=== PATIENT | male | born 1955 | race African-American/Black ===

== ENCOUNTER 2016-12-07 20:10 | Emergency (ER) | payer MEDICARE, MEDICAID ==
[~2016-12-07] VITALS: Ht 175.3 cm; Wt 62.0 kg
[~2016-12-07 20:10] MED LIST: ATOR10TA69 PO; ERGO2000 PO; FINA5TAB11 PO; NEPVIT PO; SULF-165 PO; TAMS0.4C31 PO
[2016-12-07 21:27] VITALS: BP 113/70
[2016-12-07 22:04] LABS: CLARITY URINE CLEAR (CLEAR); COLOR URINE YELLOW (YELLOW); GLUCOSE URINE NEGATIVE (NEGATIVE); KETONES URINE NEGATIVE (NEGATIVE); LEUKOCYTE ESTERASE URINE 3+ (NEGATIVE); NITRITE URINE POSITIVE (NEGATIVE); OCCULT BLOOD URINE TRACE (NEGATIVE); PROTEIN URINE 1+ (NEGATIVE); SPECIFIC GRAVITY URINE 1.014 (1.005-1.030)
[2016-12-07 22:26] LABS: BASOPHILS % 1.2 % (0.0-2.0); EOSINOPHILS % 8.1 % (0.0-5.0); HEMATOCRIT. 36.2 % (42.0-52.0); HEMOGLOBIN. 11.9 g/dL (14.0-18.0); LYMPHOCYTES % 43.3 % (20.0-50.0); MEAN CORPUSCULAR HEMOGLOBIN 27.4 pg (28.0-32.0); MEAN CORPUSCULAR VOLUME 83.2 fL (80.0-94.0); MONOCYTES % 6.4 % (2.0-8.0); PLATELET 165 x1000/uL (130-400); RED BLOOD CELL COUNT 4.35 mill/uL (4.7-6.1); RED CELL DISTRIBUTION WIDTH 15.4 % (11.6-14.6)
[2016-12-07 22:42] LABS: CARBON DIOXIDE 26 mEq/L (21-32); CHLORIDE 107 mEq/L (98-107)
== END 2016-12-07 23:21 | disposition home or self-care (01) ==
LOC: ER 20:10
DX: N39.0 Urinary tract infection, site not specified (principal); N40.1 Benign prostatic hyperplasia with lower urinary tract symptoms; R33.8 Other retention of urine; F03.90 Unspecified dementia, unspecified severity, without behavioral disturbance, psychotic disturbance, mood disturbance, and anxiety
CPT/HCPCS: 36415; 80053; 81001; 85025; 87086; 99284

== ENCOUNTER 2017-02-17 16:26 | Emergency (ER) | payer MEDICARE, MEDICAID ==
[~2017-02-17] VITALS: Ht 175.3 cm; Wt 57.7 kg
[2017-02-17 21:27] LABS: BASOPHILS % 0.8 % (0.0-2.0); EOSINOPHILS % 4.7 % (0.0-5.0); HEMATOCRIT. 37.7 % (42.0-52.0); HEMOGLOBIN. 12.4 g/dL (14.0-18.0); LYMPHOCYTES % 39.6 % (20.0-50.0); MEAN CORPUSCULAR HEMOGLOBIN 27.8 pg (28.0-32.0); MEAN CORPUSCULAR VOLUME 84.9 fL (80.0-94.0); MEAN PLATELET VOLUME 8.2 fl (7.4-10.4); MONOCYTES % 8.2 % (2.0-8.0); NEUTROPHILS % 46.7 % (40.0-76.0); PLATELET 154 x1000/uL (130-400); RED BLOOD CELL COUNT 4.45 mill/uL (4.7-6.1); RED CELL DISTRIBUTION WIDTH 16.1 % (11.6-14.6)
[2017-02-17 21:32] LABS: CHLORIDE 106 mEq/L (98-107)
[2017-02-17 21:37] LABS: CARBON DIOXIDE 25 mEq/L (21-32)
[2017-02-17 21:47] LABS: CLARITY URINE CLOUDY (CLEAR); COLOR URINE YELLOW (YELLOW); GLUCOSE URINE NEGATIVE (NEGATIVE); KETONES URINE NEGATIVE (NEGATIVE); LEUKOCYTE ESTERASE URINE 3+ (NEGATIVE); NITRITE URINE NEGATIVE (NEGATIVE); OCCULT BLOOD URINE 3+ (NEGATIVE); PH URINE >=9.0 (4.5-8.0); PROTEIN URINE 2+ (NEGATIVE); SPECIFIC GRAVITY URINE 1.014 (1.005-1.030)
[2017-02-17 22:00] VITALS: BP 130/89
== END 2017-02-17 22:42 | disposition home or self-care (01) ==
LOC: ER 16:26
DX: N18.6 End stage renal disease (principal); N18.9 Chronic kidney disease, unspecified; F03.90 Unspecified dementia, unspecified severity, without behavioral disturbance, psychotic disturbance, mood disturbance, and anxiety; N39.0 Urinary tract infection, site not specified; R03.0 Elevated blood-pressure reading, without diagnosis of hypertension
CPT/HCPCS: 36415; 80053; 81001; 85025; 87077; 87086; 87186; 99284

== ENCOUNTER 2018-11-17 06:32 | Emergency (ER) | payer MEDICARE, MEDICAID ==
[~2018-11-17] VITALS: Ht 175.3 cm; Wt 76.0 kg
[2018-11-17] MEDS ORDERED: MAGNESIUM CITRATE 300ML SOLUTION PO ONE (07:15)
[2018-11-17] MEDS ORDERED: LACTULOSE 20G/30ML UDC PO ONE (07:15)
[2018-11-17 08:08] LABS: BASOPHILS % 1.6 % (0.0-2.0); EOSINOPHILS % 5.1 % (0.0-5.0); HEMOGLOBIN. 12.9 g/dL (14.0-18.0); LYMPHOCYTES % 45.6 % (20.0-50.0); MEAN CORPUSCULAR HEMOGLOBIN 27.7 pg (28.0-32.0); MEAN CORPUSCULAR VOLUME 85.6 fL (80.0-94.0); MEAN PLATELET VOLUME 7.9 fl (7.4-10.4); MONOCYTES % 8.4 % (2.0-8.0); NEUTROPHILS % 39.3 % (40.0-76.0); PLATELET 169 x1000/uL (130-400); RED BLOOD CELL COUNT 4.67 mill/uL (4.7-6.1); RED CELL DISTRIBUTION WIDTH 14.9 % (11.6-14.6)
[2018-11-17 08:09] LABS: CLARITY URINE CLOUDY (CLEAR); COLOR URINE YELLOW (YELLOW); KETONES URINE NEGATIVE (NEGATIVE); LEUKOCYTE ESTERASE URINE 3+ (NEGATIVE); NITRITE URINE POSITIVE (NEGATIVE); OCCULT BLOOD URINE TRACE (NEGATIVE); PH URINE 8.5 (4.5-8.0); PROTEIN URINE 1+ (NEGATIVE); SPECIFIC GRAVITY URINE 1.014 (1.005-1.030)
[2018-11-17 08:12] LABS: CHLORIDE 113 mEq/L (98-107)
[2018-11-17 08:14] LABS: PROTHROMBIN TIME 10.2 sec (9.6-11.0)
[2018-11-17 10:00] VITALS: BP 131/72
== END 2018-11-17 10:32 | disposition home or self-care (01) ==
LOC: ER 06:32
DX: N39.0 Urinary tract infection, site not specified (principal); K59.00 Constipation, unspecified; N28.9 Disorder of kidney and ureter, unspecified; N40.0 Benign prostatic hyperplasia without lower urinary tract symptoms; F03.90 Unspecified dementia, unspecified severity, without behavioral disturbance, psychotic disturbance, mood disturbance, and anxiety
CPT/HCPCS: 36415; 87077; 87186; 99283

== ENCOUNTER 2019-01-28 12:05 | Inpatient (IN) | payer MEDICARE, MEDICAID ==
[~2019-01-28] VITALS: Ht 152.4 cm; Wt 59.9 kg
[2019-01-28 14:41] LABS: HEMATOCRIT 39.6 % (42.0-52.0); HEMOGLOBIN 12.9 g/dL (14.0-18.0); MEAN CORPUSCULAR HEMOGLOBIN 27.7 pg (28.0-32.0); MEAN CORPUSCULAR VOLUME 85.4 fL (80.0-94.0); PLATELET 163 x1000/uL (130-400); RED BLOOD CELL COUNT 4.64 mill/uL (4.7-6.1)
[2019-01-28 14:44] LABS: CHLORIDE 112 mEq/L (98-107)
[2019-01-28 14:47] LABS: CLARITY URINE CLOUDY (CLEAR); COLOR URINE YELLOW (YELLOW); KETONES URINE NEGATIVE (NEGATIVE); LEUKOCYTE ESTERASE URINE 3+ (NEGATIVE); NITRITE URINE POSITIVE (NEGATIVE); OCCULT BLOOD URINE TRACE (NEGATIVE); PH URINE 8.5 (4.5-8.0); PROTEIN URINE TRACE (NEGATIVE); SPECIFIC GRAVITY URINE 1.014 (1.005-1.030); UROBILINOGEN URINE 0.2 E.U./dL (0.2-1.0)
[2019-01-28] MEDS ORDERED: LEVOFLOXACIN 500MG PREMIX 100 ML IV NR (15:00)
[2019-01-28 15:46] LABS: CARCINO EMBRYONIC ANTIGEN 2.9 ng/ml; PROSTRATE SPECIFIC AG TOTAL 3.31 ng/mL (0.0-4.0)
[2019-01-28] MEDS ORDERED: ACETAMINOPHEN 325MG TABLET PO PRN (17:30)
[2019-01-28] MEDS ORDERED: LORAZEPAM 2MG/ML CPJ IV PRN (17:30)
[2019-01-28] MEDS ORDERED: IPRATROPIUM/ALBUTEROL 0.5-3(2.5)MG/3ML NEB NEB PRN (17:30)
[2019-01-28] MEDS ORDERED: DOCUSATE SODIUM 100MG CAPSULE PO PRN (17:30)
[2019-01-28] MEDS ORDERED: DIPHENHYDRAMINE 50MG/ML VIAL IV PRN (17:30)
[2019-01-28] MEDS ORDERED: MAGNESIUM/ALUMINUM HYDROXIDE/SIMETHICONE 30ML UDC PO PRN (17:30)
[2019-01-28] MEDS ORDERED: GUAIFENESIN 200MG/10ML SUGAR FREE UDC PO PRN (17:30)
[2019-01-28] MEDS ORDERED: NA PHOS,M-B/NA PHOS,DI-BA ENEMA 118ML PR PRN (17:30)
[2019-01-28] MEDS ORDERED: ONDANSETRON HCL 4MG/2ML INJ IV PRN (17:30)
[2019-01-28] MEDS ORDERED: HYDROCODONE/ACETAMINOPHEN 5/325MG TABLET PO PRN (17:30)
[2019-01-28] MEDS ORDERED: MORPHINE SULFATE 2 MG/ML CPJ (NOT FOR IM USE) IV PRN (17:30)
[2019-01-28] MEDS ORDERED: CLONIDINE 0.1MG TABLET PO PRN (17:30)
[2019-01-28 18:20] VITALS: BP 144/82
[2019-01-28] MEDS: DEXT 5%/0.45% NACL 1000ML 1,000 ML IV SCH (18:44)
[2019-01-28] MEDS: ENOXAPARIN 30MG/0.3ML SYR SUBCUT SCH (18:44)
[2019-01-28 20:00] VITALS: BP 114/76
[2019-01-28] MEDS: PIPERACILLIN/TAZOBACTAM 2.25 G in DEXTROSE 5% WATER 50 ML IV SCH (20:00)
[2019-01-28 21:20] VITALS: BP 117/74
[2019-01-29] VITALS: BP 99/74
[2019-01-29] MEDS: PIPERACILLIN/TAZOBACTAM 2.25 G in DEXTROSE 5% WATER 50 ML IV SCH ×3 (03:24→23:16)
[2019-01-29 04:00] VITALS: BP 121/79
[2019-01-29] MEDS ORDERED: DEXTROSE 50% WATER 50ML SYRINGE IV PRN (06:30)
[2019-01-29] MEDS: BLOOD SUGAR DIAGNOSTIC STRIP TEST SCH ×4 (06:36→21:00)
[2019-01-29] MEDS ORDERED: INSULIN LISPRO 100 UNITS/ML SUBCUT SCH (07:40)
[2019-01-29 08:41] VITALS: BP 99/56
[2019-01-29] MEDS: ASPIRIN 81MG EC TABLET PO SCH (08:50)
[2019-01-29 09:25] LABS: BASOPHILS % 1.5 % (0.0-2.0); HEMATOCRIT. 39.9 % (42.0-52.0); HEMOGLOBIN. 13.2 g/dL (14.0-18.0); LYMPHOCYTES % 39.1 % (20.0-50.0); MEAN CORPUSCULAR HEMOGLOBIN 28.2 pg (28.0-32.0); MEAN PLATELET VOLUME 7.9 fl (7.4-10.4); MONOCYTES % 8.9 % (2.0-8.0); NEUTROPHILS % 45.5 % (40.0-76.0); PLATELET 164 x1000/uL (130-400); RED BLOOD CELL COUNT 4.67 mill/uL (4.7-6.1); RED CELL DISTRIBUTION WIDTH 15.6 % (11.6-14.6)
[2019-01-29 09:31] LABS: MEAN CORPUSCULAR VOLUME 85.5 fL (80.0-94.0)
[2019-01-29] MEDS: DEXT 5%/0.45% NACL 1000ML 1,000 ML IV SCH (10:56)
[2019-01-29 12:00] VITALS: BP 98/70
[2019-01-29 12:57] LABS: CHLORIDE 109 mEq/L (98-107)
[2019-01-29 13:04] LABS: LDL CHOLESTEROL 79 mg/dL (5-100)
[2019-01-29 13:05] LABS: T4 FREE 1.26 ng/dL (0.76-1.46)
[2019-01-29 13:06] LABS: HDL CHOLESTEROL 75 mg/dL (40-59)
[2019-01-29 16:08] VITALS: BP 136/84
[2019-01-29] MEDS: ENOXAPARIN 30MG/0.3ML SYR SUBCUT SCH (18:42)
[2019-01-29 20:00] VITALS: BP 107/72
[2019-01-29] MEDS ORDERED: INSULIN GLARGINE UD 100 UNITS/ML SYR SUBCUT SCH (22:00)
[2019-01-30] VITALS: BP 107/64
[2019-01-30] MEDS: DEXT 5%/0.45% NACL 1000ML 1,000 ML IV SCH ×2 (02:47→18:19)
[2019-01-30 04:00] VITALS: BP 104/73
[2019-01-30] MEDS: PIPERACILLIN/TAZOBACTAM 2.25 G in DEXTROSE 5% WATER 50 ML IV SCH ×3 (05:08→22:00)
[2019-01-30] MEDS: BLOOD SUGAR DIAGNOSTIC STRIP TEST SCH ×4 (06:17→19:50)
[2019-01-30 08:00] VITALS: BP 106/72
[2019-01-30] MEDS: ASPIRIN 81MG EC TABLET PO SCH (08:19)
[2019-01-30 12:00] VITALS: BP_SYST 107; BP_SYST 151; BP_DIAS 60; BP_DIAS 62
[2019-01-30 16:00] VITALS: BP 98/60
[2019-01-30] MEDS: ENOXAPARIN 30MG/0.3ML SYR SUBCUT SCH (18:18)
[2019-01-30 20:06] VITALS: BP 118/60
[2019-01-31 00:23] VITALS: BP 109/64
[2019-01-31 04:00] VITALS: BP 112/70
[2019-01-31] MEDS: PIPERACILLIN/TAZOBACTAM 2.25 G in DEXTROSE 5% WATER 50 ML IV SCH ×2 (05:00→15:21)
[2019-01-31] MEDS: DEXT 5%/0.45% NACL 1000ML 1,000 ML IV SCH (05:14)
[2019-01-31] MEDS: BLOOD SUGAR DIAGNOSTIC STRIP TEST SCH ×2 (06:05→11:45)
[2019-01-31 08:00] VITALS: BP 124/71
[2019-01-31] MEDS: ASPIRIN 81MG EC TABLET PO SCH (09:28)
[2019-01-31 11:18] VITALS: BP 139/85
[2019-01-31 12:00] VITALS: BP 126/80
[2019-01-31 16:00] VITALS: BP 139/85
== END 2019-01-31 18:55 | DRG 640 ==
LOC: ER 12:05 → ENRESERV 15:12 → CANRESERV 15:12 → 6EST 16:40 → EDBEDREQ 16:44 → EDBEDREQTM 16:44 → ENRESERV 17:03 → 8WST 21:20 → 5WST 01-31 07:12
PROVIDERS: ADMIT Internal Medicine; ATTEND Internal Medicine
DX: E86.0 Dehydration (principal); G93.41 Metabolic encephalopathy; N39.0 Urinary tract infection, site not specified; E46 Unspecified protein-calorie malnutrition; R65.10 Systemic inflammatory response syndrome (SIRS) of non-infectious origin without acute organ dysfunction; I10 Essential (primary) hypertension; N40.0 Benign prostatic hyperplasia without lower urinary tract symptoms; F03.90 Unspecified dementia, unspecified severity, without behavioral disturbance, psychotic disturbance, mood disturbance, and anxiety; D64.9 Anemia, unspecified; Z68.25 Body mass index [BMI] 25.0-25.9, adult; Z79.899 Other long term (current) drug therapy
CPT/HCPCS: 36415; 71045; 80048; 80061; 81003; 82378; 82962; 84153; 84439; 84443; 85027; 96365; 96366; 97162; 97530; 99285; J1650; J1956; J2543; J7060; G0103

== ENCOUNTER 2019-02-28 16:36 | Emergency (ER) | payer MEDICARE, MEDICAID ==
[~2019-02-28] VITALS: Ht 170.2 cm; Wt 69.0 kg
[2019-02-28 18:53] VITALS: BP 120/72
== END 2019-02-28 19:01 | disposition home or self-care (01) ==
LOC: ER 17:23
DX: Z46.6 Encounter for fitting and adjustment of urinary device (principal); R33.9 Retention of urine, unspecified; N40.0 Benign prostatic hyperplasia without lower urinary tract symptoms
CPT/HCPCS: 51702; 99284; A4315

== ENCOUNTER 2021-02-27 22:19 | Inpatient (IN) | payer MEDICARE, MEDICAID ==
[~2021-02-27] VITALS: Ht 193 cm; Wt 64.4 kg
[~2021-02-27 22:19] MED LIST changes: -SULF-165 PO
[2021-02-27] MEDS ORDERED: MORPHINE SULFATE 4 MG/ML CPJ (NOT FOR IM USE) IV STA (22:42)
[2021-02-27] MEDS ORDERED: SODIUM CHLORIDE 0.9% 1,000 ML IV ONE (22:45)
[2021-02-28 01:00] LABS: HEMATOCRIT. 34.4 % (42.0-52.0); HEMOGLOBIN. 11.1 g/dL (14.0-18.0); MEAN CORPUSCULAR HEMOGLOBIN 27.7 pg (28.0-32.0); MEAN CORPUSCULAR VOLUME 85.5 fL (80.0-94.0); MEAN PLATELET VOLUME 9.2 fl (7.4-10.4); PLATELET 218 x1000/uL (130-400); RED BLOOD CELL COUNT 4.02 mill/uL (4.7-6.1); RED CELL DISTRIBUTION WIDTH 15.5 % (11.6-14.6)
[2021-02-28 01:08] LABS: CHLORIDE 109 mEq/L (98-107)
[2021-02-28 01:23] LABS: INR 1.1; PROTHROMBIN TIME 11.5 sec (9.6-11.0)
[2021-02-28] MEDS ORDERED: SODIUM CHLORIDE 0.9% 1,000 ML IV ONE (01:45)
[2021-02-28 07:30] LABS: PLATELET ESTIMATE NORMAL
[2021-02-28] MEDS ORDERED: CLONIDINE 0.1MG TABLET PO PRN (12:15)
[2021-02-28] MEDS ORDERED: MORPHINE SULFATE 2 MG/ML CPJ (NOT FOR IM USE) IV PRN (12:15)
[2021-02-28] MEDS ORDERED: DIPHENHYDRAMINE 50MG/ML VIAL IV PRN (12:15)
[2021-02-28] MEDS ORDERED: HYDROCODONE/ACETAMINOPHEN 5/325MG TABLET PO PRN (12:15)
[2021-02-28] MEDS ORDERED: HYDRALAZINE 20MG/ML VIAL IV PRN (12:15)
[2021-02-28] MEDS ORDERED: MAGNESIUM/ALUMINUM HYDROXIDE/SIMETHICONE 30ML UDC PO PRN (12:15)
[2021-02-28] MEDS ORDERED: ONDANSETRON HCL 4MG/2ML INJ IV PRN (12:15)
[2021-02-28] MEDS ORDERED: ENOXAPARIN 40MG/0.4ML SYR SUBCUT SCH (12:15)
[2021-02-28] MEDS ORDERED: ACETAMINOPHEN 325MG TABLET PO PRN (12:15)
[2021-02-28] MEDS ORDERED: LORAZEPAM 2MG/ML CPJ IV PRN (12:15)
[2021-02-28] MEDS ORDERED: IPRATROPIUM/ALBUTEROL 0.5-3(2.5)MG/3ML NEB HHN PRN (12:15)
[2021-02-28] MEDS ORDERED: GUAIFENESIN 200MG/10ML SUGAR FREE UDC PO PRN (12:15)
[2021-02-28] MEDS ORDERED: DOCUSATE SODIUM 100MG CAPSULE PO PRN (12:15)
[2021-02-28] MEDS ORDERED: NALOXONE HCL 0.4MG/ML VIAL IV PRN (12:30)
[2021-02-28] MEDS: ENOXAPARIN 30MG/0.3ML SYR SUBCUT SCH (12:54)
[2021-02-28] MEDS: SODIUM CHLORIDE 0.9% INJ 3ML FLUSH IVF SCH (14:00)
[2021-02-28 16:09] VITALS: BP 102/72
[2021-02-28 17:03] VITALS: BP 102/72
[2021-02-28] MEDS: SODIUM CHLORIDE 0.45% 1,000 ML IV SCH (17:11)
[2021-02-28 20:00] VITALS: BP 98/69
[2021-03-01] VITALS: BP 94/58
[2021-03-01] MEDS: SODIUM CHLORIDE 0.45% 1,000 ML IV SCH (00:20)
[2021-03-01] MEDS: SODIUM CHLORIDE 0.9% INJ 3ML FLUSH IVF SCH ×2 (00:20→21:29)
[2021-03-01 04:00] VITALS: BP 114/72
[2021-03-01] MEDS ORDERED: DOCU240C26 PO (07:17)
[2021-03-01] MEDS ORDERED: ATOR40TA70 PO (07:17)
[2021-03-01] MEDS ORDERED: TAMS-11 PO (07:17)
[2021-03-01] MEDS ORDERED: CHOL400D7 PO (07:17)
[2021-03-01 08:00] VITALS: BP 109/57
[2021-03-01 08:52] LABS: HEMOGLOBIN. 9.9 g/dL (14.0-18.0); MEAN CORPUSCULAR HEMOGLOBIN 28.2 pg (28.0-32.0); MEAN CORPUSCULAR VOLUME 85.3 fL (80.0-94.0); MEAN PLATELET VOLUME 8.9 fl (7.4-10.4); PLATELET 190 x1000/uL (130-400); RED BLOOD CELL COUNT 3.52 mill/uL (4.7-6.1); RED CELL DISTRIBUTION WIDTH 15.7 % (11.6-14.6)
[2021-03-01 08:58] LABS: CHLORIDE 106 mEq/L (98-107)
[2021-03-01 09:33] LABS: T4 FREE 1.39 ng/dL (0.76-1.46)
[2021-03-01 10:12] LABS: CLARITY URINE TURBID (CLEAR); COLOR URINE DK YELLOW (YELLOW); KETONES URINE NEGATIVE (NEGATIVE); LEUKOCYTE ESTERASE URINE 3+ (NEGATIVE); NITRITE URINE NEGATIVE (NEGATIVE); OCCULT BLOOD URINE 3+ (NEGATIVE); PH URINE 7.5 (4.5-8.0); PROTEIN URINE 2+ (NEGATIVE); SPECIFIC GRAVITY URINE 1.011 (1.005-1.030); UROBILINOGEN URINE 0.2 E.U./dL (0.2-1.0)
[2021-03-01] MEDS ORDERED: CEFTRIAXONE 1 G PREMIX 50 ML IV SCH (10:45)
[2021-03-01 12:00] VITALS: BP 108/60
[2021-03-01] MEDS: DEXT 5%/0.45% NACL 1000ML 1,000 ML IV SCH (12:23)
[2021-03-01] MEDS: CEFTRIAXONE 1,000 MG in DEXTROSE 5% WATER 50 ML IV SCH (13:31)
[2021-03-01] MEDS: ENOXAPARIN 30MG/0.3ML SYR SUBCUT SCH (13:35)
[2021-03-01 16:00] VITALS: BP 101/61
[2021-03-01 17:20] LABS: CREATINE KINASE MB FRACTION 12.8 ng/mL (0.5-3.6)
[2021-03-01 17:32] LABS: CREATINE KINASE 1082 IU/L (39-308)
[2021-03-01 18:24] LABS: NUCLEATED RED BLOOD CELLS 3 /100 WBC; PLATELET ESTIMATE NORMAL
[2021-03-01 20:14] VITALS: BP 103/64
[2021-03-01] MEDS: TAMSULOSIN HCL 0.4MG SR CAPSULE PO SCH ×2 (20:28→20:31)
[2021-03-02] VITALS: BP 112/66
[2021-03-02] MEDS: DEXT 5%/0.45% NACL 1000ML 1,000 ML IV SCH (00:46)
[2021-03-02 02:51] LABS: CREATINE KINASE MB FRACTION 10.7 ng/mL (0.5-3.6)
[2021-03-02 04:00] VITALS: BP 111/70
[2021-03-02] MEDS: SODIUM CHLORIDE 0.9% INJ 3ML FLUSH IVF SCH ×3 (05:07→20:51)
[2021-03-02 07:46] VITALS: BP 112/71
[2021-03-02 08:11] LABS: ANTI-NUCLEAR ANTIBODIES DIRECT Negative (Negative)
[2021-03-02 08:23] LABS: CHLORIDE 108 mEq/L (98-107); HEMATOCRIT. 24.9 % (42.0-52.0); HEMOGLOBIN. 8.4 g/dL (14.0-18.0); MEAN CORPUSCULAR HEMOGLOBIN 28.2 pg (28.0-32.0); MEAN PLATELET VOLUME 8.5 fl (7.4-10.4); PLATELET 165 x1000/uL (130-400); RED BLOOD CELL COUNT 2.96 mill/uL (4.7-6.1); RED CELL DISTRIBUTION WIDTH 15.4 % (11.6-14.6)
[2021-03-02 08:34] LABS: CREATINE KINASE 722 IU/L (39-308)
[2021-03-02 08:36] LABS: CREATINE KINASE MB FRACTION 6.6 ng/mL (0.5-3.6)
[2021-03-02 11:17] VITALS: BP 116/66
[2021-03-02 12:48] LABS: BG BASE EXCESS -9.6 mmol/L (-2.0-2.0); BG CARBOXYHEMOGLOBIN 0.2 % (0.5-1.5); BG DEOXYHEMOGLOBIN 2.5 % (0.0-5.0); BG FRACTION INSPIRED OXYGEN 21; BG HCO3 ACT 14.3 mmol/L (22.0-26.0); BG METHEMOGLOBIN 0.5 % (0.0-1.5); BG OXYGEN SATURATION 97.5 % (92.0-98.5); BG OXYHEMOGLOBIN 96.8 % (94.0-97.0); BG PCO2 25.1 mmHg (35.0-45.0); BG PH 7.375 (7.350-7.450); BG PO2 110.4 mmHg (75.0-100.0); BG SAMPLE SITE RIGHT BRACHIAL; BG TOTAL HEMOGLOBIN 9.2 g/dL (12.0-18.0); BG VENT MODE ROOM AIR
[2021-03-02] MEDS: CEFTRIAXONE 1,000 MG in DEXTROSE 5% WATER 50 ML IV SCH (12:54)
[2021-03-02] MEDS: ENOXAPARIN 30MG/0.3ML SYR SUBCUT SCH (12:54)
[2021-03-02] MEDS: SODIUM BICARBONATE 100 MEQ in SODIUM CHLORIDE 0.45% 1,000 ML IV SCH ×2 (15:02→20:50)
[2021-03-02 15:15] VITALS: BP 114/73
[2021-03-02 17:46] LABS: PLATELET ESTIMATE NORMAL
[2021-03-02 20:00] VITALS: BP 123/74
[2021-03-02] MEDS: LACTULOSE 20G/30ML UDC PO SCH (20:39)
[2021-03-02] MEDS: TAMSULOSIN HCL 0.4MG SR CAPSULE PO SCH (20:49)
[2021-03-03 00:16] VITALS: BP 114/71
[2021-03-03 04:00] VITALS: BP 122/80
[2021-03-03] MEDS: SODIUM CHLORIDE 0.9% INJ 3ML FLUSH IVF SCH ×3 (05:12→21:05)
[2021-03-03] MEDS: SODIUM BICARBONATE 100 MEQ in SODIUM CHLORIDE 0.45% 1,000 ML IV SCH ×2 (06:36→12:21)
[2021-03-03 07:36] LABS: HEMOGLOBIN. 9.5 g/dL (14.0-18.0); MEAN CORPUSCULAR HEMOGLOBIN 28.2 pg (28.0-32.0); MEAN CORPUSCULAR VOLUME 88.7 fL (80.0-94.0); PLATELET 177 x1000/uL (130-400); RED BLOOD CELL COUNT 3.38 mill/uL (4.7-6.1); RED CELL DISTRIBUTION WIDTH 16.1 % (11.6-14.6)
[2021-03-03 08:00] VITALS: BP 119/81
[2021-03-03] MEDS: LACTULOSE 20G/30ML UDC PO SCH ×2 (09:20→21:05)
[2021-03-03] MEDS ORDERED: SODIUM POLYSTYRENE SULFONATE 15 G/60 ML BOT PO NR (11:00)
[2021-03-03 12:00] VITALS: BP 110/79
[2021-03-03 14:14] LABS: PLATELET ESTIMATE NORMAL
[2021-03-03] MEDS: CEFTRIAXONE 1,000 MG in DEXTROSE 5% WATER 50 ML IV SCH (14:24)
[2021-03-03] MEDS: ENOXAPARIN 30MG/0.3ML SYR SUBCUT SCH (14:46)
[2021-03-03 16:00] VITALS: BP 116/79
[2021-03-03 20:00] VITALS: BP 111/64
[2021-03-03] MEDS: TAMSULOSIN HCL 0.4MG SR CAPSULE PO SCH (21:05)
[2021-03-04] VITALS: BP 114/72
[2021-03-04] MEDS: SODIUM BICARBONATE 100 MEQ in SODIUM CHLORIDE 0.45% 1,000 ML IV SCH ×2 (01:25→10:35)
[2021-03-04 04:00] VITALS: BP 95/66
[2021-03-04] MEDS: SODIUM CHLORIDE 0.9% INJ 3ML FLUSH IVF SCH ×3 (06:00→21:26)
[2021-03-04 08:17] VITALS: BP 102/68
[2021-03-04 08:29] LABS: HEMATOCRIT. 26.7 % (42.0-52.0); HEMOGLOBIN. 8.8 g/dL (14.0-18.0); MEAN CORPUSCULAR HEMOGLOBIN 27.8 pg (28.0-32.0); MEAN CORPUSCULAR VOLUME 84.1 fL (80.0-94.0); MEAN PLATELET VOLUME 8.7 fl (7.4-10.4); PLATELET 205 x1000/uL (130-400); RED BLOOD CELL COUNT 3.18 mill/uL (4.7-6.1); RED CELL DISTRIBUTION WIDTH 15.2 % (11.6-14.6)
[2021-03-04] MEDS: LACTULOSE 20G/30ML UDC PO SCH ×2 (08:35→20:52)
[2021-03-04 09:12] LABS: PHOSPHORUS 4.7 mg/dL (2.5-4.9)
[2021-03-04 12:07] VITALS: BP 103/62
[2021-03-04] MEDS: DEXTROSE 5% WATER 1,000 ML IV SCH ×2 (13:09→20:53)
[2021-03-04] MEDS: CEFTRIAXONE 1,000 MG in DEXTROSE 5% WATER 50 ML IV SCH (13:20)
[2021-03-04] MEDS: ENOXAPARIN 30MG/0.3ML SYR SUBCUT SCH (13:24)
[2021-03-04 16:40] VITALS: BP 106/60
[2021-03-04 16:55] LABS: PLATELET ESTIMATE NORMAL
[2021-03-04 20:27] VITALS: BP 98/60
[2021-03-04] MEDS: TAMSULOSIN HCL 0.4MG SR CAPSULE PO SCH (20:53)
[2021-03-05 00:14] VITALS: BP 95/62
[2021-03-05] MEDS: DEXTROSE 5% WATER 1,000 ML IV SCH ×4 (03:02→22:20)
[2021-03-05 04:00] VITALS: BP 100/63
[2021-03-05] MEDS: SODIUM CHLORIDE 0.9% INJ 3ML FLUSH IVF SCH ×3 (05:02→21:05)
[2021-03-05 07:10] LABS: HEMATOCRIT. 28.3 % (42.0-52.0); HEMOGLOBIN. 9.2 g/dL (14.0-18.0); MEAN CORPUSCULAR HEMOGLOBIN 27.7 pg (28.0-32.0); MEAN CORPUSCULAR VOLUME 84.7 fL (80.0-94.0); MEAN PLATELET VOLUME 8.8 fl (7.4-10.4); PLATELET 209 x1000/uL (130-400); RED BLOOD CELL COUNT 3.34 mill/uL (4.7-6.1); RED CELL DISTRIBUTION WIDTH 14.8 % (11.6-14.6)
[2021-03-05 08:43] VITALS: BP 105/62
[2021-03-05] MEDS: LACTULOSE 20G/30ML UDC PO SCH ×2 (08:55→21:05)
[2021-03-05] MEDS: ENOXAPARIN 30MG/0.3ML SYR SUBCUT SCH (12:14)
[2021-03-05] MEDS: CEFTRIAXONE 1,000 MG in DEXTROSE 5% WATER 50 ML IV SCH (12:14)
[2021-03-05 12:18] VITALS: BP 95/60
[2021-03-05 14:56] LABS: PLATELET ESTIMATE NORMAL
[2021-03-05 16:30] LABS: HEMATOCRIT. 24.1 % (42.0-52.0); HEMOGLOBIN. 7.9 g/dL (14.0-18.0); MEAN CORPUSCULAR HEMOGLOBIN 27.4 pg (28.0-32.0); MEAN CORPUSCULAR VOLUME 83.3 fL (80.0-94.0); MEAN PLATELET VOLUME 8.5 fl (7.4-10.4); PLATELET 205 x1000/uL (130-400); RED BLOOD CELL COUNT 2.89 mill/uL (4.7-6.1)
[2021-03-05 16:46] VITALS: BP 104/60
[2021-03-05 19:13] LABS: PLATELET ESTIMATE NORMAL
[2021-03-05 20:00] VITALS: BP 101/64
[2021-03-05] MEDS: TAMSULOSIN HCL 0.4MG SR CAPSULE PO SCH (21:05)
[2021-03-05] MEDS ORDERED: POTASSIUM CHLORIDE INJ 40 MEQ in DEXT 5% WATER 250 ML IV NR (21:30)
[2021-03-06 00:34] VITALS: BP 98/64
[2021-03-06 04:00] VITALS: BP 97/63
[2021-03-06] MEDS: DEXTROSE 5% WATER 1,000 ML IV SCH ×2 (05:33→11:59)
[2021-03-06] MEDS: SODIUM CHLORIDE 0.9% INJ 3ML FLUSH IVF SCH ×3 (05:33→21:42)
[2021-03-06] MEDS: LACTULOSE 20G/30ML UDC PO SCH ×2 (08:22→21:24)
[2021-03-06 08:23] VITALS: BP 114/68
[2021-03-06 09:28] LABS: MEAN CORPUSCULAR HEMOGLOBIN 27.7 pg (28.0-32.0); MEAN CORPUSCULAR VOLUME 82.8 fL (80.0-94.0); PLATELET 217 x1000/uL (130-400); RED BLOOD CELL COUNT 2.89 mill/uL (4.7-6.1); RED CELL DISTRIBUTION WIDTH 14.6 % (11.6-14.6)
[2021-03-06 12:00] VITALS: BP 95/65
[2021-03-06 12:35] LABS: PHOSPHORUS 3.3 mg/dL (2.5-4.9)
[2021-03-06] MEDS: ENOXAPARIN 30MG/0.3ML SYR SUBCUT SCH (13:28)
[2021-03-06] MEDS ORDERED: DIATR MEGLU/DIATRIZOATE SOLN 120ML ONE (13:49)
[2021-03-06 16:00] VITALS: BP 90/60
[2021-03-06 20:00] VITALS: BP 105/72
[2021-03-06] MEDS: TAMSULOSIN HCL 0.4MG SR CAPSULE PO SCH (21:24)
[2021-03-06] MEDS: DEXT 5%/0.45% NACL 1000ML 1,000 ML IV SCH (23:00)
[2021-03-06] MEDS ORDERED: POTASSIUM CHLORIDE INJ 40 MEQ in DEXT 5% WATER 250 ML IV NR (23:59)
[2021-03-07] VITALS: BP 96/61
[2021-03-07 04:00] VITALS: BP 99/68
[2021-03-07] MEDS: SODIUM CHLORIDE 0.9% INJ 3ML FLUSH IVF SCH ×3 (06:56→22:00)
[2021-03-07 07:17] LABS: HEMATOCRIT. 26.7 % (42.0-52.0); HEMOGLOBIN. 8.8 g/dL (14.0-18.0); MEAN CORPUSCULAR HEMOGLOBIN 27.6 pg (28.0-32.0); MEAN CORPUSCULAR VOLUME 83.3 fL (80.0-94.0); MEAN PLATELET VOLUME 8.6 fl (7.4-10.4); PLATELET 271 x1000/uL (130-400); RED CELL DISTRIBUTION WIDTH 14.7 % (11.6-14.6)
[2021-03-07 08:00] VITALS: BP 101/72
[2021-03-07] MEDS: LACTULOSE 20G/30ML UDC PO SCH ×2 (08:06→21:50)
[2021-03-07 12:00] VITALS: BP 110/71
[2021-03-07] MEDS: DEXT 5%/0.45% NACL 1000ML 1,000 ML IV SCH (13:12)
[2021-03-07] MEDS: ENOXAPARIN 30MG/0.3ML SYR SUBCUT SCH (13:14)
[2021-03-07] MEDS ORDERED: LIDOCAINE HCL 1% 20ML VIAL (Pyxis) INJ ONE (13:48)
[2021-03-07 16:00] VITALS: BP 106/72
[2021-03-07 18:42] LABS: PLATELET ESTIMATE NORMAL
[2021-03-07 20:00] VITALS: BP 103/74
[2021-03-07] MEDS: TAMSULOSIN HCL 0.4MG SR CAPSULE PO SCH (21:50)
[2021-03-08] VITALS: BP 93/65
[2021-03-08] MEDS: DEXT 5%/0.45% NACL 1000ML 1,000 ML IV SCH ×2 (01:40→14:04)
[2021-03-08 04:00] VITALS: BP 93/60
[2021-03-08] MEDS: SODIUM CHLORIDE 0.9% INJ 3ML FLUSH IVF SCH ×3 (06:00→22:00)
[2021-03-08 06:39] LABS: HEMATOCRIT. 25.4 % (42.0-52.0); HEMOGLOBIN. 8.4 g/dL (14.0-18.0); MEAN CORPUSCULAR HEMOGLOBIN 27.9 pg (28.0-32.0); MEAN CORPUSCULAR VOLUME 84.5 fL (80.0-94.0); MEAN PLATELET VOLUME 8.4 fl (7.4-10.4); PLATELET 254 x1000/uL (130-400); RED CELL DISTRIBUTION WIDTH 14.8 % (11.6-14.6)
[2021-03-08 08:21] VITALS: BP 94/61
[2021-03-08] MEDS: LACTULOSE 20G/30ML UDC PO SCH ×2 (08:51→21:00)
[2021-03-08 12:00] VITALS: BP 90/59
[2021-03-08] MEDS: ENOXAPARIN 30MG/0.3ML SYR SUBCUT SCH (14:04)
[2021-03-08 14:59] LABS: PLATELET ESTIMATE NORMAL
[2021-03-08 16:06] VITALS: BP 102/73
[2021-03-08 20:00] VITALS: BP 103/73
[2021-03-08] MEDS: TAMSULOSIN HCL 0.4MG SR CAPSULE PO SCH (21:00)
[2021-03-09] VITALS: BP 95/69
[2021-03-09 04:00] VITALS: BP 103/73
[2021-03-09] MEDS: DEXT 5%/0.45% NACL 1000ML 1,000 ML IV SCH (04:02)
[2021-03-09] MEDS: SODIUM CHLORIDE 0.9% INJ 3ML FLUSH IVF SCH ×3 (05:56→23:12)
[2021-03-09 06:54] LABS: BASOPHILS % 0.1 % (0.0-2.0); EOSINOPHILS % 0.6 % (0.0-5.0); HEMATOCRIT. 26.3 % (42.0-52.0); LYMPHOCYTES % 14.9 % (20.0-50.0); MEAN CORPUSCULAR HEMOGLOBIN 28.1 pg (28.0-32.0); MEAN CORPUSCULAR VOLUME 92.8 fL (80.0-94.0); MEAN PLATELET VOLUME 8.3 fl (7.4-10.4); MONOCYTES % 3.6 % (2.0-8.0); NEUTROPHILS % 80.8 % (40.0-76.0); PLATELET 244 x1000/uL (130-400); RED BLOOD CELL COUNT 2.84 mill/uL (4.7-6.1); RED CELL DISTRIBUTION WIDTH 15.9 % (11.6-14.6)
[2021-03-09 07:02] LABS: CHLORIDE 111 mEq/L (98-107)
[2021-03-09 07:14] LABS: PHOSPHORUS 3.4 mg/dL (2.5-4.9)
[2021-03-09 08:07] VITALS: BP 111/65
[2021-03-09] MEDS ORDERED: SODIUM CHLORIDE 0.9% 1,000 ML IV SCH (09:00)
[2021-03-09] MEDS: LACTULOSE 20G/30ML UDC PO SCH ×2 (09:00→23:10)
[2021-03-09 12:12] VITALS: BP 103/64
[2021-03-09] MEDS ORDERED: CEFTRIAXONE 1 G PREMIX 50 ML IV SCH (12:15)
[2021-03-09] MEDS ORDERED: VANCOMYCIN HCL 1 GM/VIAL ONE (13:55)
[2021-03-09] MEDS ORDERED: LIDOCAINE HCL/EPINEPHRINE 1%-EPI 1:100,000 20 ML VIAL ONE (13:55)
[2021-03-09] MEDS ORDERED: POLYMYXIN B SULFATE 500000 UNITS/VIAL ONE (13:56)
[2021-03-09] MEDS ORDERED: MAGNESIUM 2 G PREMIX 50 ML IV SCH (14:00)
[2021-03-09] MEDS: CEFTRIAXONE 1,000 MG in DEXTROSE 5% WATER 50 ML IV SCH (14:20)
[2021-03-09] MEDS ORDERED: NEOSTIGMINE METHYLSULFATE 1MG/ML 10 ML VIAL ONE (15:14)
[2021-03-09] MEDS ORDERED: PROPOFOL 200MG/20ML VIAL IV ONE (15:14)
[2021-03-09] MEDS ORDERED: ROCURONIUM BROMIDE 10MG/ML VIAL 5ML IV ONE (15:14)
[2021-03-09] MEDS ORDERED: FENTANYL CITRATE/PF 50MCG/ML 2ML VIAL ONE ×2 (15:14→16:01)
[2021-03-09] MEDS ORDERED: MIDAZOLAM HCL 2 MG/2 ML VIAL ONE (15:14)
[2021-03-09] MEDS ORDERED: PHENYLEPHRINE HCL 10 MG/ML 1ML (IV VIAL) IV ONE (15:15)
[2021-03-09] MEDS ORDERED: GLYCOPYRROLATE 0.2 MG/ML 2ML VIAL ONE (15:15)
[2021-03-09] MEDS ORDERED: CEFAZOLIN SODIUM 1000MG/VIAL ONE (15:15)
[2021-03-09] MEDS ORDERED: LIDOCAINE HCL/PF 1% 10 MG/ML 5ML VIAL ONE (15:15)
[2021-03-09] MEDS ORDERED: SODIUM CHLORIDE 0.9% 10ML VIAL ONE (15:17)
[2021-03-09] MEDS ORDERED: METOCLOPRAMIDE HCL 10MG/2ML VIAL ONE (15:17)
[2021-03-09] MEDS ORDERED: EPHEDRINE SULFATE 50MG/ML VIAL ONE (15:17)
[2021-03-09] MEDS ORDERED: SUCCINYLCHOLINE CHLORIDE 200MG/10ML IV ONE (15:17)
[2021-03-09] MEDS ORDERED: ONDANSETRON HCL 4MG/2ML INJ ONE (15:17)
[2021-03-09] MEDS ORDERED: MEPERIDINE HCL/PF 25MG/ML CPJ IV PRN (17:15)
[2021-03-09] MEDS ORDERED: SODIUM CHLORIDE 0.9% 1,000 ML IV ONE (17:15)
[2021-03-09] MEDS ORDERED: ONDANSETRON HCL 4MG/2ML INJ IV PRN (17:15)
[2021-03-09] MEDS ORDERED: HYDROMORPHONE HCL/PF 2MG/ML CPJ IV PRN (17:15)
[2021-03-09] MEDS ORDERED: MORPHINE SULFATE 2 MG/ML CPJ (NOT FOR IM USE) IV PRN (17:15)
[2021-03-09 18:12] LABS: HEMATOCRIT 29.7 % (42.0-52.0); HEMOGLOBIN 9.9 g/dL (14.0-18.0); MEAN CORPUSCULAR HEMOGLOBIN 28.6 pg (28.0-32.0); MEAN CORPUSCULAR VOLUME 86.1 fL (80.0-94.0); PLATELET 215 x1000/uL (130-400); RED BLOOD CELL COUNT 3.45 mill/uL (4.7-6.1); RED CELL DISTRIBUTION WIDTH 14.3 % (11.6-14.6)
[2021-03-09 20:40] VITALS: BP 112/71
[2021-03-09] MEDS ORDERED: TOTAL PARENTERAL NUTRITION 1,000 ML IV SCH (21:00)
[2021-03-09] MEDS: PHYTONADIONE 10MG/ML AMP SUBCUT SCH (23:10)
[2021-03-09] MEDS: FAT EMULSIONS 500 ML IV SCH (23:10)
[2021-03-09] MEDS: TAMSULOSIN HCL 0.4MG SR CAPSULE PO SCH (23:10)
[2021-03-10 04:00] VITALS: BP 122/65
[2021-03-10] MEDS: SODIUM CHLORIDE 0.9% INJ 3ML FLUSH IVF SCH ×3 (06:00→21:46)
[2021-03-10] MEDS: BLOOD SUGAR DIAGNOSTIC STRIP TEST SCH ×4 (06:38→18:00)
[2021-03-10] MEDS: LACTULOSE 20G/30ML UDC PO SCH (08:32)
[2021-03-10 08:36] VITALS: BP 113/65
[2021-03-10 09:38] LABS: HEMATOCRIT. 26.1 % (42.0-52.0); MEAN CORPUSCULAR VOLUME 87.6 fL (80.0-94.0); MEAN PLATELET VOLUME 7.9 fl (7.4-10.4); PLATELET 192 x1000/uL (130-400); RED BLOOD CELL COUNT 2.98 mill/uL (4.7-6.1); RED CELL DISTRIBUTION WIDTH 14.7 % (11.6-14.6)
[2021-03-10 09:40] LABS: HEMOGLOBIN. 9.2 g/dL (14.0-18.0); MEAN CORPUSCULAR HEMOGLOBIN 30.9 pg (28.0-32.0)
[2021-03-10 10:25] LABS: PLATELET ESTIMATE NORMAL
[2021-03-10 12:34] VITALS: BP 107/58
[2021-03-10] MEDS: CEFTRIAXONE 1,000 MG in DEXTROSE 5% WATER 50 ML IV SCH (15:14)
[2021-03-10 16:12] VITALS: BP 106/61
[2021-03-10] MEDS ORDERED: ACETAMINOPHEN 650MG SUPP PR PRN (16:45)
[2021-03-10] MEDS: METOCLOPRAMIDE HCL 10MG/2ML VIAL IV SCH (18:03)
[2021-03-10 20:00] VITALS: BP 113/64
[2021-03-10] MEDS: TAMSULOSIN HCL 0.4MG SR CAPSULE PO SCH ×2 (21:00→21:46)
[2021-03-10] MEDS ORDERED: TOTAL PARENTERAL NUTRITION 1,200 ML IV SCH (21:00)
[2021-03-11] VITALS: BP 114/69
[2021-03-11] MEDS: METOCLOPRAMIDE HCL 10MG/2ML VIAL IV SCH ×4 (00:04→21:36)
[2021-03-11] MEDS: BLOOD SUGAR DIAGNOSTIC STRIP TEST SCH ×4 (00:04→17:25)
[2021-03-11 04:00] VITALS: BP 113/64
[2021-03-11 06:28] LABS: BASOPHILS % 0.6 % (0.0-2.0); EOSINOPHILS % 0.8 % (0.0-5.0); HEMATOCRIT. 23.8 % (42.0-52.0); HEMOGLOBIN. 7.9 g/dL (14.0-18.0); LYMPHOCYTES % 8.1 % (20.0-50.0); MEAN CORPUSCULAR HEMOGLOBIN 28.8 pg (28.0-32.0); MEAN CORPUSCULAR VOLUME 87.4 fL (80.0-94.0); MEAN PLATELET VOLUME 8.4 fl (7.4-10.4); MONOCYTES % 4.2 % (2.0-8.0); NEUTROPHILS % 86.3 % (40.0-76.0); PLATELET 178 x1000/uL (130-400); RED BLOOD CELL COUNT 2.73 mill/uL (4.7-6.1); RED CELL DISTRIBUTION WIDTH 15.2 % (11.6-14.6)
[2021-03-11] MEDS: SODIUM CHLORIDE 0.9% INJ 3ML FLUSH IVF SCH ×3 (06:48→21:37)
[2021-03-11 08:00] VITALS: BP 104/69
[2021-03-11 12:00] VITALS: BP 99/66
[2021-03-11] MEDS ORDERED: LORAZEPAM 2MG/ML CPJ IV PRN (12:45)
[2021-03-11] MEDS ORDERED: MORPHINE SULFATE 2 MG/ML CPJ (NOT FOR IM USE) IV PRN (12:45)
[2021-03-11] MEDS: CEFTRIAXONE 1,000 MG in DEXTROSE 5% WATER 50 ML IV SCH (14:04)
[2021-03-11 16:00] VITALS: BP 123/65
[2021-03-11 20:27] VITALS: BP 167/85
[2021-03-11] MEDS: TAMSULOSIN HCL 0.4MG SR CAPSULE PO SCH (21:00)
[2021-03-11] MEDS: TOTAL PARENTERAL NUTRITION 1,600 ML IV SCH (21:36)
[2021-03-12] VITALS: BP 90/56
[2021-03-12] MEDS: BLOOD SUGAR DIAGNOSTIC STRIP TEST SCH ×4 (00:25→17:34)
[2021-03-12 04:33] VITALS: BP 127/83
[2021-03-12] MEDS: SODIUM CHLORIDE 0.9% INJ 3ML FLUSH IVF SCH ×3 (05:20→22:24)
[2021-03-12] MEDS: METOCLOPRAMIDE HCL 10MG/2ML VIAL IV SCH ×3 (05:21→22:24)
[2021-03-12 06:21] LABS: BASOPHILS % 0.4 % (0.0-2.0); EOSINOPHILS % 0.6 % (0.0-5.0); HEMATOCRIT. 27.4 % (42.0-52.0); LYMPHOCYTES % 7.7 % (20.0-50.0); MEAN CORPUSCULAR HEMOGLOBIN 28.7 pg (28.0-32.0); MEAN CORPUSCULAR VOLUME 87.3 fL (80.0-94.0); MEAN PLATELET VOLUME 8.3 fl (7.4-10.4); MONOCYTES % 3.7 % (2.0-8.0); NEUTROPHILS % 87.6 % (40.0-76.0); PLATELET 219 x1000/uL (130-400); RED BLOOD CELL COUNT 3.14 mill/uL (4.7-6.1); RED CELL DISTRIBUTION WIDTH 15.6 % (11.6-14.6)
[2021-03-12 08:00] VITALS: BP 92/65
[2021-03-12 11:53] VITALS: BP 110/65
[2021-03-12] MEDS: CEFTRIAXONE 1,000 MG in DEXTROSE 5% WATER 50 ML IV SCH (14:29)
[2021-03-12 16:00] VITALS: BP 106/73
[2021-03-12] MEDS: TAMSULOSIN HCL 0.4MG SR CAPSULE PO SCH (20:21)
[2021-03-12 20:26] VITALS: BP 97/68
[2021-03-12] MEDS: TOTAL PARENTERAL NUTRITION 1,600 ML IV SCH (20:41)
[2021-03-13] VITALS: BP 97/69
[2021-03-13] MEDS: BLOOD SUGAR DIAGNOSTIC STRIP TEST SCH ×4 (00:26→18:00)
[2021-03-13 04:00] VITALS: BP 106/69
[2021-03-13] MEDS: METOCLOPRAMIDE HCL 10MG/2ML VIAL IV SCH ×3 (05:41→22:44)
[2021-03-13] MEDS: SODIUM CHLORIDE 0.9% INJ 3ML FLUSH IVF SCH ×3 (05:41→22:45)
[2021-03-13 06:36] LABS: BASOPHILS % 0.8 % (0.0-2.0); EOSINOPHILS % 0.9 % (0.0-5.0); HEMATOCRIT. 27.2 % (42.0-52.0); HEMOGLOBIN. 8.9 g/dL (14.0-18.0); LYMPHOCYTES % 10.5 % (20.0-50.0); MEAN CORPUSCULAR HEMOGLOBIN 28.9 pg (28.0-32.0); MEAN CORPUSCULAR VOLUME 88.2 fL (80.0-94.0); MEAN PLATELET VOLUME 8.6 fl (7.4-10.4); MONOCYTES % 4.7 % (2.0-8.0); NEUTROPHILS % 83.1 % (40.0-76.0); PLATELET 219 x1000/uL (130-400); RED BLOOD CELL COUNT 3.09 mill/uL (4.7-6.1); RED CELL DISTRIBUTION WIDTH 15.9 % (11.6-14.6)
[2021-03-13 08:13] VITALS: BP 105/70
[2021-03-13 11:24] VITALS: BP 119/76
[2021-03-13 16:10] VITALS: BP 101/73
[2021-03-13] MEDS: CEFTRIAXONE 1,000 MG in DEXTROSE 5% WATER 50 ML IV SCH (16:38)
[2021-03-13] MEDS: DEXTROSE 5% WATER 1,000 ML IV SCH (16:38)
[2021-03-13 20:00] VITALS: BP 109/70
[2021-03-13] MEDS ORDERED: TOTAL PARENTERAL NUTRITION 1,600 ML IV SCH (21:00)
[2021-03-13] MEDS: TAMSULOSIN HCL 0.4MG SR CAPSULE PO SCH (21:00)
[2021-03-13] MEDS ORDERED: NALOXONE HCL 0.4MG/ML VIAL IV PRN (21:45)
[2021-03-13] MEDS: FAT EMULSIONS 500 ML IV SCH (22:45)
[2021-03-14 00:42] VITALS: BP 107/68
[2021-03-14 04:00] VITALS: BP 111/76
[2021-03-14] MEDS: BLOOD SUGAR DIAGNOSTIC STRIP TEST SCH ×4 (06:00→18:09)
[2021-03-14 06:19] LABS: EOSINOPHILS % 1.5 % (0.0-5.0); HEMATOCRIT. 25.4 % (42.0-52.0); MEAN PLATELET VOLUME 8.6 fl (7.4-10.4); MONOCYTES % 4.3 % (2.0-8.0); NEUTROPHILS % 80.2 % (40.0-76.0); PLATELET 227 x1000/uL (130-400); RED BLOOD CELL COUNT 2.85 mill/uL (4.7-6.1); RED CELL DISTRIBUTION WIDTH 16.2 % (11.6-14.6)
[2021-03-14] MEDS: METOCLOPRAMIDE HCL 10MG/2ML VIAL IV SCH ×3 (06:25→21:09)
[2021-03-14] MEDS: SODIUM CHLORIDE 0.9% INJ 3ML FLUSH IVF SCH ×3 (06:25→21:10)
[2021-03-14 06:32] LABS: PHOSPHORUS 1.4 mg/dL (2.5-4.9)
[2021-03-14 08:08] LABS: HEMOGLOBIN. 8.7 g/dL (14.0-18.0)
[2021-03-14 08:09] LABS: MEAN CORPUSCULAR HEMOGLOBIN 30.5 pg (28.0-32.0)
[2021-03-14 08:16] VITALS: BP 130/74
[2021-03-14] MEDS ORDERED: POTASSIUM PHOS,M-BASIC-D-BASIC 15 MMOL in DEXT 5% WATER 245 ML IV NR (10:00)
[2021-03-14 11:35] VITALS: BP 106/67
[2021-03-14] MEDS: DEXTROSE 5% WATER 1,000 ML IV SCH (13:47)
[2021-03-14 15:42] VITALS: BP 106/73
[2021-03-14] MEDS: ENOXAPARIN 30MG/0.3ML SYR SUBCUT SCH (21:10)
[2021-03-14] MEDS: TAMSULOSIN HCL 0.4MG SR CAPSULE PO SCH (21:10)
[2021-03-14] MEDS: TOTAL PARENTERAL NUTRITION 1,600 ML IV SCH (21:12)
[2021-03-14 23:54] VITALS: BP 100/61
[2021-03-15 04:00] VITALS: BP 111/62
[2021-03-15] MEDS: BLOOD SUGAR DIAGNOSTIC STRIP TEST SCH ×4 (05:29→18:22)
[2021-03-15] MEDS: METOCLOPRAMIDE HCL 10MG/2ML VIAL IV SCH ×3 (06:16→21:30)
[2021-03-15] MEDS: SODIUM CHLORIDE 0.9% INJ 3ML FLUSH IVF SCH ×3 (06:16→21:30)
[2021-03-15 06:24] LABS: HEMATOCRIT. 26.2 % (42.0-52.0); HEMOGLOBIN. 8.6 g/dL (14.0-18.0); MEAN CORPUSCULAR HEMOGLOBIN 29.1 pg (28.0-32.0); MEAN CORPUSCULAR VOLUME 88.7 fL (80.0-94.0); MEAN PLATELET VOLUME 8.3 fl (7.4-10.4); PLATELET 200 x1000/uL (130-400); RED BLOOD CELL COUNT 2.96 mill/uL (4.7-6.1); RED CELL DISTRIBUTION WIDTH 16.2 % (11.6-14.6)
[2021-03-15 06:27] LABS: PHOSPHORUS 2.8 mg/dL (2.5-4.9)
[2021-03-15 07:37] VITALS: BP 107/68
[2021-03-15 11:05] VITALS: BP 106/85
[2021-03-15 13:54] LABS: PLATELET ESTIMATE NORMAL
[2021-03-15 15:03] VITALS: BP 111/73
[2021-03-15 20:55] VITALS: BP 121/73
[2021-03-15] MEDS: ENOXAPARIN 30MG/0.3ML SYR SUBCUT SCH (21:30)
[2021-03-15] MEDS: TAMSULOSIN HCL 0.4MG SR CAPSULE PO SCH (21:30)
[2021-03-15] MEDS: TOTAL PARENTERAL NUTRITION 1,600 ML IV SCH (21:32)
[2021-03-16 00:28] VITALS: BP 102/64
[2021-03-16] MEDS: BLOOD SUGAR DIAGNOSTIC STRIP TEST SCH ×4 (00:46→18:00)
[2021-03-16 04:00] VITALS: BP 94/65
[2021-03-16] MEDS: METOCLOPRAMIDE HCL 10MG/2ML VIAL IV SCH ×3 (05:41→21:38)
[2021-03-16] MEDS: SODIUM CHLORIDE 0.9% INJ 3ML FLUSH IVF SCH ×3 (05:41→21:39)
[2021-03-16 07:10] LABS: BASOPHILS % 0.9 % (0.0-2.0); EOSINOPHILS % 1.3 % (0.0-5.0); HEMATOCRIT. 26.9 % (42.0-52.0); HEMOGLOBIN. 8.9 g/dL (14.0-18.0); LYMPHOCYTES % 18.2 % (20.0-50.0); MEAN CORPUSCULAR HEMOGLOBIN 28.9 pg (28.0-32.0); MEAN CORPUSCULAR VOLUME 87.8 fL (80.0-94.0); MEAN PLATELET VOLUME 8.5 fl (7.4-10.4); MONOCYTES % 5.3 % (2.0-8.0); NEUTROPHILS % 74.3 % (40.0-76.0); PLATELET 190 x1000/uL (130-400); RED BLOOD CELL COUNT 3.07 mill/uL (4.7-6.1); RED CELL DISTRIBUTION WIDTH 16.5 % (11.6-14.6)
[2021-03-16 07:39] LABS: PHOSPHORUS 2.8 mg/dL (2.5-4.9)
[2021-03-16 08:00] VITALS: BP 125/74
[2021-03-16 12:00] VITALS: BP 118/71
[2021-03-16 16:00] VITALS: BP 101/63
[2021-03-16 20:00] VITALS: BP 99/61
[2021-03-16] MEDS: ENOXAPARIN 30MG/0.3ML SYR SUBCUT SCH (21:00)
[2021-03-16] MEDS: TAMSULOSIN HCL 0.4MG SR CAPSULE PO SCH (21:00)
[2021-03-16] MEDS: PHYTONADIONE 10MG/ML AMP SUBCUT SCH (21:00)
[2021-03-17] VITALS: BP 96/65
[2021-03-17 04:00] VITALS: BP 103/62
[2021-03-17] MEDS: METOCLOPRAMIDE HCL 10MG/2ML VIAL IV SCH ×3 (05:03→22:00)
[2021-03-17] MEDS: SODIUM CHLORIDE 0.9% INJ 3ML FLUSH IVF SCH ×3 (05:04→22:00)
[2021-03-17] MEDS: BLOOD SUGAR DIAGNOSTIC STRIP TEST SCH ×5 (06:38→23:57)
[2021-03-17 08:00] VITALS: BP 114/64
[2021-03-17 08:28] LABS: BASOPHILS % 0.8 % (0.0-2.0); EOSINOPHILS % 1.2 % (0.0-5.0); LYMPHOCYTES % 20.3 % (20.0-50.0); MEAN CORPUSCULAR HEMOGLOBIN 29.2 pg (28.0-32.0); MEAN CORPUSCULAR VOLUME 88.2 fL (80.0-94.0); MEAN PLATELET VOLUME 8.2 fl (7.4-10.4); NEUTROPHILS % 70.7 % (40.0-76.0); PLATELET 174 x1000/uL (130-400); RED BLOOD CELL COUNT 2.73 mill/uL (4.7-6.1); RED CELL DISTRIBUTION WIDTH 16.5 % (11.6-14.6)
[2021-03-17 12:00] VITALS: BP 97/64
[2021-03-17] MEDS: THIAMINE HCL 100MG TABLET PO SCH (14:30)
[2021-03-17 16:00] VITALS: BP 109/66
[2021-03-17 20:00] VITALS: BP 103/71
[2021-03-17] MEDS: TAMSULOSIN HCL 0.4MG SR CAPSULE PO SCH (21:00)
[2021-03-17] MEDS: ENOXAPARIN 30MG/0.3ML SYR SUBCUT SCH (21:00)
[2021-03-18] VITALS: BP 114/63
[2021-03-18 04:00] VITALS: BP 119/62
[2021-03-18] MEDS: BLOOD SUGAR DIAGNOSTIC STRIP TEST SCH ×3 (06:00→17:11)
[2021-03-18] MEDS: SODIUM CHLORIDE 0.9% INJ 3ML FLUSH IVF SCH ×3 (06:00→21:04)
[2021-03-18] MEDS: METOCLOPRAMIDE HCL 10MG/2ML VIAL IV SCH ×3 (06:00→21:04)
[2021-03-18 07:06] LABS: BASOPHILS % 0.8 % (0.0-2.0); EOSINOPHILS % 1.9 % (0.0-5.0); HEMATOCRIT. 24.3 % (42.0-52.0); LYMPHOCYTES % 30.5 % (20.0-50.0); MEAN CORPUSCULAR VOLUME 87.9 fL (80.0-94.0); MEAN PLATELET VOLUME 8.4 fl (7.4-10.4); MONOCYTES % 7.5 % (2.0-8.0); NEUTROPHILS % 59.3 % (40.0-76.0); PLATELET 215 x1000/uL (130-400); RED BLOOD CELL COUNT 2.77 mill/uL (4.7-6.1); RED CELL DISTRIBUTION WIDTH 16.2 % (11.6-14.6)
[2021-03-18 07:57] VITALS: BP 95/67
[2021-03-18] MEDS: THIAMINE HCL 100MG TABLET PO SCH (08:54)
[2021-03-18 11:56] VITALS: BP 125/69
[2021-03-18 15:52] VITALS: BP 93/64
[2021-03-18 20:00] VITALS: BP 105/66
[2021-03-18] MEDS: TAMSULOSIN HCL 0.4MG SR CAPSULE PO SCH (21:04)
[2021-03-18] MEDS: ENOXAPARIN 30MG/0.3ML SYR SUBCUT SCH (21:04)
[2021-03-19 00:33] VITALS: BP 115/75
[2021-03-19] MEDS: BLOOD SUGAR DIAGNOSTIC STRIP TEST SCH ×4 (00:54→17:43)
[2021-03-19 04:00] VITALS: BP 96/62
[2021-03-19] MEDS: METOCLOPRAMIDE HCL 10MG/2ML VIAL IV SCH ×3 (06:48→21:26)
[2021-03-19] MEDS: SODIUM CHLORIDE 0.9% INJ 3ML FLUSH IVF SCH ×3 (06:49→21:26)
[2021-03-19 07:56] VITALS: BP 100/66
[2021-03-19] MEDS: THIAMINE HCL 100MG TABLET PO SCH (09:48)
[2021-03-19] MEDS ORDERED: LORAZEPAM 2MG/ML CPJ IV PRN (10:30)
[2021-03-19 11:36] VITALS: BP 103/63
[2021-03-19] MEDS: RISPERIDONE 0.5MG TABLET PO SCH (12:41)
[2021-03-19 16:29] VITALS: BP 100/62
[2021-03-19 20:10] VITALS: BP 124/80
[2021-03-19] MEDS: TAMSULOSIN HCL 0.4MG SR CAPSULE PO SCH (21:25)
[2021-03-19] MEDS: ENOXAPARIN 30MG/0.3ML SYR SUBCUT SCH (21:26)
[2021-03-20] VITALS: BP 118/67
[2021-03-20] MEDS: BLOOD SUGAR DIAGNOSTIC STRIP TEST SCH ×4 (00:29→18:16)
[2021-03-20 04:00] VITALS: BP 113/65
[2021-03-20] MEDS: METOCLOPRAMIDE HCL 10MG/2ML VIAL IV SCH ×3 (06:26→21:35)
[2021-03-20] MEDS: SODIUM CHLORIDE 0.9% INJ 3ML FLUSH IVF SCH ×3 (06:27→21:37)
[2021-03-20 08:00] VITALS: BP 112/65
[2021-03-20] MEDS: THIAMINE HCL 100MG TABLET PO SCH (08:25)
[2021-03-20] MEDS: RISPERIDONE 0.5MG TABLET PO SCH (08:25)
[2021-03-20 09:27] LABS: BASOPHILS % 0.9 % (0.0-2.0); EOSINOPHILS % 1.3 % (0.0-5.0); HEMATOCRIT. 24.8 % (42.0-52.0); HEMOGLOBIN. 8.2 g/dL (14.0-18.0); LYMPHOCYTES % 22.1 % (20.0-50.0); MEAN CORPUSCULAR HEMOGLOBIN 29.4 pg (28.0-32.0); MEAN CORPUSCULAR VOLUME 89.7 fL (80.0-94.0); MEAN PLATELET VOLUME 7.6 fl (7.4-10.4); MONOCYTES % 8.5 % (2.0-8.0); NEUTROPHILS % 67.2 % (40.0-76.0); PLATELET 305 x1000/uL (130-400); RED BLOOD CELL COUNT 2.77 mill/uL (4.7-6.1); RED CELL DISTRIBUTION WIDTH 17.1 % (11.6-14.6)
[2021-03-20 12:00] VITALS: BP 111/61
[2021-03-20 16:00] VITALS: BP 121/57
[2021-03-20 20:30] VITALS: BP 111/55
[2021-03-20] MEDS: ENOXAPARIN 30MG/0.3ML SYR SUBCUT SCH (21:35)
[2021-03-20] MEDS: TAMSULOSIN HCL 0.4MG SR CAPSULE PO SCH (21:36)
[2021-03-21] VITALS (7 sets, daily range): BP systolic 99–141; BP diastolic 65–73
[2021-03-21] MEDS: BLOOD SUGAR DIAGNOSTIC STRIP TEST SCH ×2 (06:00)
[2021-03-21] MEDS: SODIUM CHLORIDE 0.9% INJ 3ML FLUSH IVF SCH ×2 (06:04→13:48)
[2021-03-21] MEDS: METOCLOPRAMIDE HCL 10MG/2ML VIAL IV SCH ×2 (06:05→13:48)
[2021-03-21] MEDS: THIAMINE HCL 100MG TABLET PO SCH (09:15)
[2021-03-21] MEDS: RISPERIDONE 0.5MG TABLET PO SCH (09:15)
[2021-03-22 00:14] VITALS: BP 137/70
[2021-03-22 04:00] VITALS: BP 114/77
[2021-03-22 07:50] VITALS: BP 129/83
[2021-03-22] MEDS: RISPERIDONE 0.5MG TABLET PO SCH (09:12)
[2021-03-22] MEDS: THIAMINE HCL 100MG TABLET PO SCH (09:12)
[2021-03-22 11:01] VITALS: BP 118/55
[2021-03-22] MEDS: METOCLOPRAMIDE HCL 10MG/2ML VIAL IV SCH ×2 (13:39→22:13)
[2021-03-22] MEDS: SODIUM CHLORIDE 0.9% INJ 3ML FLUSH IVF SCH ×2 (13:39→22:20)
[2021-03-22 16:00] VITALS: BP 132/65
[2021-03-22 20:29] VITALS: BP 122/77
[2021-03-22] MEDS: TAMSULOSIN HCL 0.4MG SR CAPSULE PO SCH ×2 (21:00→22:13)
[2021-03-22] MEDS: ENOXAPARIN 30MG/0.3ML SYR SUBCUT SCH ×2 (21:00→22:16)
[2021-03-23 00:05] VITALS: BP 118/68
[2021-03-23 04:35] VITALS: BP 107/70
[2021-03-23] MEDS: METOCLOPRAMIDE HCL 10MG/2ML VIAL IV SCH ×3 (07:04→22:00)
[2021-03-23] MEDS: SODIUM CHLORIDE 0.9% INJ 3ML FLUSH IVF SCH ×3 (07:04→22:00)
[2021-03-23 08:07] VITALS: BP 124/74
[2021-03-23] MEDS: RISPERIDONE 0.5MG TABLET PO SCH (08:24)
[2021-03-23] MEDS: THIAMINE HCL 100MG TABLET PO SCH (08:24)
[2021-03-23 10:41] LABS: BASOPHILS % 1.1 % (0.0-2.0); EOSINOPHILS % 3.1 % (0.0-5.0); HEMATOCRIT. 27.4 % (42.0-52.0); HEMOGLOBIN. 8.9 g/dL (14.0-18.0); LYMPHOCYTES % 25.4 % (20.0-50.0); MEAN CORPUSCULAR HEMOGLOBIN 28.6 pg (28.0-32.0); MEAN CORPUSCULAR VOLUME 88.5 fL (80.0-94.0); MONOCYTES % 8.4 % (2.0-8.0); PLATELET 485 x1000/uL (130-400); RED CELL DISTRIBUTION WIDTH 16.9 % (11.6-14.6)
[2021-03-23 12:00] VITALS: BP 106/64
[2021-03-23 16:00] VITALS: BP 104/69
[2021-03-23] MEDS: DOCUSATE SODIUM 250MG CAPSULE PO SCH (17:25)
[2021-03-23] MEDS: ENOXAPARIN 30MG/0.3ML SYR SUBCUT SCH (21:00)
[2021-03-23] MEDS: TAMSULOSIN HCL 0.4MG SR CAPSULE PO SCH (21:00)
[2021-03-23] MEDS: LACTULOSE 20G/30ML UDC PO SCH (21:00)
[2021-03-24] MEDS: METOCLOPRAMIDE HCL 10MG/2ML VIAL IV SCH ×3 (07:01→22:02)
[2021-03-24] MEDS: SODIUM CHLORIDE 0.9% INJ 3ML FLUSH IVF SCH ×3 (07:01→22:04)
[2021-03-24] MEDS: POLYETHYLENE GLYCOL 3350 (17GM) 1 DOSE PACK PO SCH (08:15)
[2021-03-24] MEDS: RISPERIDONE 0.5MG TABLET PO SCH (08:15)
[2021-03-24] MEDS: DOCUSATE SODIUM 250MG CAPSULE PO SCH ×2 (08:15→17:03)
[2021-03-24] MEDS: THIAMINE HCL 100MG TABLET PO SCH (08:15)
[2021-03-24 12:00] VITALS: BP 98/60
[2021-03-24 19:55] LABS: EOSINOPHILS % 3.5 % (0.0-5.0); HEMATOCRIT. 29.1 % (42.0-52.0); HEMOGLOBIN. 9.5 g/dL (14.0-18.0); LYMPHOCYTES % 28.5 % (20.0-50.0); MEAN CORPUSCULAR HEMOGLOBIN 29.2 pg (28.0-32.0); MEAN CORPUSCULAR VOLUME 88.8 fL (80.0-94.0); MEAN PLATELET VOLUME 7.2 fl (7.4-10.4); MONOCYTES % 7.6 % (2.0-8.0); NEUTROPHILS % 59.4 % (40.0-76.0); PLATELET 481 x1000/uL (130-400); RED BLOOD CELL COUNT 3.27 mill/uL (4.7-6.1); RED CELL DISTRIBUTION WIDTH 17.2 % (11.6-14.6)
[2021-03-24 20:00] VITALS: BP 102/68
[2021-03-24] MEDS: LACTULOSE 20G/30ML UDC PO SCH (21:00)
[2021-03-24] MEDS: TAMSULOSIN HCL 0.4MG SR CAPSULE PO SCH (21:00)
[2021-03-24] MEDS: ENOXAPARIN 30MG/0.3ML SYR SUBCUT SCH (22:04)
[2021-03-25] VITALS: BP 96/61
[2021-03-25] MEDS: METOCLOPRAMIDE HCL 10MG/2ML VIAL IV SCH ×3 (06:00→22:03)
[2021-03-25] MEDS: SODIUM CHLORIDE 0.9% INJ 3ML FLUSH IVF SCH ×3 (06:00→22:04)
[2021-03-25 08:00] VITALS: BP 110/59
[2021-03-25] MEDS: POLYETHYLENE GLYCOL 3350 (17GM) 1 DOSE PACK PO SCH (10:19)
[2021-03-25] MEDS: RISPERIDONE 0.5MG TABLET PO SCH (10:20)
[2021-03-25] MEDS: ZINC SULFATE 220 MG ( 50 ) CAPSULE PO SCH (10:20)
[2021-03-25] MEDS: DOCUSATE SODIUM 250MG CAPSULE PO SCH ×2 (10:20→17:32)
[2021-03-25] MEDS: THIAMINE HCL 100MG TABLET PO SCH (10:20)
[2021-03-25] MEDS: ASCORBIC ACID 500 MG TABLET PO SCH (10:20)
[2021-03-25] MEDS: MULTIVITAMINS,THER W-MINERALS TABLET PO SCH (10:20)
[2021-03-25 12:00] VITALS: BP 113/65
[2021-03-25 16:00] VITALS: BP 108/63
[2021-03-25 21:24] VITALS: BP 104/56
[2021-03-25] MEDS: ENOXAPARIN 30MG/0.3ML SYR SUBCUT SCH (22:03)
[2021-03-25] MEDS: LACTULOSE 20G/30ML UDC PO SCH (22:03)
[2021-03-25] MEDS: TAMSULOSIN HCL 0.4MG SR CAPSULE PO SCH (22:04)
[2021-03-26] VITALS: BP 127/63
[2021-03-26 04:00] VITALS: BP 135/58
[2021-03-26] MEDS: METOCLOPRAMIDE HCL 10MG/2ML VIAL IV SCH ×3 (06:37→22:00)
[2021-03-26] MEDS: SODIUM CHLORIDE 0.9% INJ 3ML FLUSH IVF SCH ×3 (06:37→22:00)
[2021-03-26 07:21] LABS: BASOPHILS % 0.9 % (0.0-2.0); EOSINOPHILS % 2.1 % (0.0-5.0); HEMATOCRIT. 26.9 % (42.0-52.0); HEMOGLOBIN. 8.9 g/dL (14.0-18.0); LYMPHOCYTES % 24.2 % (20.0-50.0); MEAN CORPUSCULAR HEMOGLOBIN 29.3 pg (28.0-32.0); MEAN CORPUSCULAR VOLUME 88.8 fL (80.0-94.0); MEAN PLATELET VOLUME 7.5 fl (7.4-10.4); MONOCYTES % 6.9 % (2.0-8.0); NEUTROPHILS % 65.9 % (40.0-76.0); PLATELET 463 x1000/uL (130-400); RED BLOOD CELL COUNT 3.03 mill/uL (4.7-6.1); RED CELL DISTRIBUTION WIDTH 17.2 % (11.6-14.6)
[2021-03-26 08:00] VITALS: BP 109/70
[2021-03-26] MEDS: RISPERIDONE 0.5MG TABLET PO SCH (09:21)
[2021-03-26] MEDS: THIAMINE HCL 100MG TABLET PO SCH (09:21)
[2021-03-26] MEDS: MULTIVITAMINS,THER W-MINERALS TABLET PO SCH (09:21)
[2021-03-26] MEDS: ASCORBIC ACID 500 MG TABLET PO SCH (09:21)
[2021-03-26] MEDS: DOCUSATE SODIUM 250MG CAPSULE PO SCH ×2 (09:21→18:09)
[2021-03-26] MEDS: ZINC SULFATE 220 MG ( 50 ) CAPSULE PO SCH (09:21)
[2021-03-26] MEDS: POLYETHYLENE GLYCOL 3350 (17GM) 1 DOSE PACK PO SCH (09:21)
[2021-03-26 12:00] VITALS: BP 108/68
[2021-03-26 16:00] VITALS: BP 118/78
[2021-03-26] MEDS: TAMSULOSIN HCL 0.4MG SR CAPSULE PO SCH (21:00)
[2021-03-26] MEDS: ENOXAPARIN 30MG/0.3ML SYR SUBCUT SCH (21:00)
[2021-03-26] MEDS: LACTULOSE 20G/30ML UDC PO SCH (21:00)
[2021-03-27] MEDS: METOCLOPRAMIDE HCL 10MG/2ML VIAL IV SCH ×2 (06:31→14:48)
[2021-03-27] MEDS: SODIUM CHLORIDE 0.9% INJ 3ML FLUSH IVF SCH ×2 (06:32→14:00)
[2021-03-27 08:00] VITALS: BP 112/68
[2021-03-27] MEDS: DOCUSATE SODIUM 250MG CAPSULE PO SCH ×2 (09:57→17:32)
[2021-03-27] MEDS: POLYETHYLENE GLYCOL 3350 (17GM) 1 DOSE PACK PO SCH (09:57)
[2021-03-27] MEDS: THIAMINE HCL 100MG TABLET PO SCH (09:57)
[2021-03-27] MEDS: ZINC SULFATE 220 MG ( 50 ) CAPSULE PO SCH (09:57)
[2021-03-27] MEDS: RISPERIDONE 0.5MG TABLET PO SCH (09:57)
[2021-03-27] MEDS: ASCORBIC ACID 500 MG TABLET PO SCH (09:57)
[2021-03-27] MEDS: MULTIVITAMINS,THER W-MINERALS TABLET PO SCH (09:57)
[2021-03-27 12:00] VITALS: BP 113/55
[2021-03-27 16:00] VITALS: BP 126/72
[2021-03-27 20:00] VITALS: BP 105/74
[2021-03-27] MEDS: LACTULOSE 20G/30ML UDC PO SCH (20:10)
[2021-03-27] MEDS: TAMSULOSIN HCL 0.4MG SR CAPSULE PO SCH (20:12)
[2021-03-27] MEDS: ENOXAPARIN 30MG/0.3ML SYR SUBCUT SCH (20:12)
== END 2021-03-27 22:04 | DRG 480 ==
LOC: ER 22:19 → MICUSO 02-28 01:44 → EDBEDREQTM 02-28 01:48 → EDBEDREQ 02-28 01:48 → EDBEDREQDT 02-28 01:48 → 6WST 02-28 14:44 → 6EST 03-23 11:09
PROVIDERS: ADMIT Internal Medicine; ATTEND Internal Medicine
PROC: 02HV33Z Insertion of Infusion Device into Superior Vena Cava, Percutaneous Approach (ICD-10-PCS; 2021-03-07)
PROC: B5181ZA Fluoroscopy of Superior Vena Cava using Low Osmolar Contrast, Guidance (ICD-10-PCS; 2021-03-07)
PROC: B548ZZA Ultrasonography of Superior Vena Cava, Guidance (ICD-10-PCS; 2021-03-07)
PROC: 0QS604Z Reposition Right Upper Femur with Internal Fixation Device, Open Approach (ICD-10-PCS; principal; 2021-03-09)
PROC: 30233N1 Transfusion of Nonautologous Red Blood Cells into Peripheral Vein, Percutaneous Approach (ICD-10-PCS; 2021-03-09)
PROC: BQ101ZZ Fluoroscopy of Right Hip using Low Osmolar Contrast (ICD-10-PCS; 2021-03-09)
DX: S72.141A Displaced intertrochanteric fracture of right femur, initial encounter for closed fracture (principal); N17.0 Acute kidney failure with tubular necrosis; R65.10 Systemic inflammatory response syndrome (SIRS) of non-infectious origin without acute organ dysfunction; E87.0 Hyperosmolality and hypernatremia; E87.2 Acidosis; M62.82 Rhabdomyolysis; N39.0 Urinary tract infection, site not specified; R78.81 Bacteremia; E46 Unspecified protein-calorie malnutrition; Z68.1 Body mass index [BMI] 19.9 or less, adult; K56.699 Other intestinal obstruction unspecified as to partial versus complete obstruction; E78.5 Hyperlipidemia, unspecified; M16.0 Bilateral primary osteoarthritis of hip; D64.9 Anemia, unspecified; B96.4 Proteus (mirabilis) (morganii) as the cause of diseases classified elsewhere; E86.0 Dehydration; Z20.822 Contact with and (suspected) exposure to COVID-19; I12.9 Hypertensive chronic kidney disease with stage 1 through stage 4 chronic kidney disease, or unspecified chronic kidney disease; N18.9 Chronic kidney disease, unspecified; F03.90 Unspecified dementia, unspecified severity, without behavioral disturbance, psychotic disturbance, mood disturbance, and anxiety; E87.5 Hyperkalemia; N40.0 Benign prostatic hyperplasia without lower urinary tract symptoms; R00.0 Tachycardia, unspecified; R73.9 Hyperglycemia, unspecified; R74.8 Abnormal levels of other serum enzymes; W18.39XA Other fall on same level, initial encounter; Y93.89 Activity, other specified; Y92.89 Other specified places as the place of occurrence of the external cause; Y99.8 Other external cause status
CPT/HCPCS: 36415; 36573; 36600; 71045; 73080; 73502; 74018; 74176; 74250; 76000; 76770; 80048; 80053; 80061; 81003; 82040; 82375; 82550; 82553; 82805; 82962; 83036; 83605; 83735; 83880; 84100; 84134; 84439; 84443; 84478; 84484; 85025; 85027; 85379; 86038; 86160; 86850; 86900; 86920; 87077; 87186; 87426; 92610; 93005; 93306; 93970; 97110; 97163; 97164; 99285; C1713; C1725; C1769; C1893; C8901; J0330; J0360; J0690; J0696; J1650; J2060; J2175; J2250; J2270; J2370; J2405; J2704; J2710; J2765; J3010; J3370; J3430; J3475; J3480; J3490; J7030; J7060; J7070; L3908; P9016; Q9963